=== PATIENT | male | born 1955 | race Caucasian/White ===

== ENCOUNTER 2020-12-24 22:49 | Inpatient (IN) | payer BC ==
[~2020-12-24] VITALS: Ht 177.8 cm; Wt 100.0 kg
[2020-12-24] MEDS ORDERED: OMEP40CA4 PO (23:18)
[2020-12-24] MEDS ORDERED: FLOM0.4C39 PO (23:18)
[2020-12-24] MEDS ORDERED: ATOR1TAB19 PO (23:18)
[2020-12-24] MEDS ORDERED: LISI-898 PO (23:18)
[2020-12-24] MEDS ORDERED: MELO15TA28 PO (23:18)
[2020-12-24] MEDS ORDERED: COLA100C5 PO (23:18)
[2020-12-24] MEDS ORDERED: MORPHINE 4 MG/ML 1ML VIAL/SYRINGE (J2270) IV ONE (23:35)
[2020-12-24] MEDS ORDERED: ONDANSETRON 4MG/2ML VIAL IV ONE (23:35)
[2020-12-24] MEDS ORDERED: TRANEXAMIC ACID INJection 1,000 MG in D5W 100 ML IV ONE (23:50)
[2020-12-25 00:35] LABS: BASO # 0.1 10^3/uL (0.0-0.2); BASO % 0.8 % (0.0-1.0); EOS # 0.1 10^3/uL (0.0-0.5); EOS % 0.8 % (0.0-3.0); HEMATOCRIT 40.4 % (42.0-52.0); HEMOGLOBIN 13.6 g/dl (13.5-17.5); LYMPH # 2.6 10^3/uL (1.5-5.0); MEAN CORPUSCULAR HEMOGLOBIN 31.1 pg (27.0-33.0); MEAN CORPUSCULAR HGB CONC 33.7 g/dl (32.0-36.5); MEAN CORPUSCULAR VOLUME 92.2 fl (80.0-96.0); MONO # 0.7 10^3/uL (0.0-0.8); MONO % 5.6 % (2.0-8.0); NEUTROPHILS # 9.2 10^3/uL (1.5-8.5); NEUTROPHILS % 71.9 % (36.0-66.0); PLATELET COUNT, AUTOMATED 265 10^3/uL (150-450); RED BLOOD COUNT 4.38 10^6/uL (4.30-6.10); WHITE BLOOD COUNT 12.8 10^3/uL (4.0-10.0)
[2020-12-25 00:38] LABS: RSV AMPLIFICATION NEGATIVE (NEGATIVE)
[2020-12-25 00:47] LABS: INR 0.99; PROTHROMBIN TIME 13.5 SECONDS (12.7-14.5)
[2020-12-25 00:48] LABS: PARTIAL THROMBOPLASTIN TIME 20.1 SECONDS (25.9-37.0)
[2020-12-25 00:56] LABS: BLOOD UREA NITROGEN 17 MG/DL (7-18); CALCIUM LEVEL 8.4 MG/DL (8.8-10.2); CARBON DIOXIDE LEVEL 26 MEQ/L (21-32); CHLORIDE LEVEL 104 MEQ/L (98-107); CREATININE FOR GFR 1.29 MG/DL (0.70-1.30); GLOMERULAR FILTRATION RATE > 60.0 (>49); GLUCOSE, FASTING 142 MG/DL (70-100); POTASSIUM SERUM 3.9 MEQ/L (3.5-5.1); SODIUM LEVEL 141 MEQ/L (136-145)
[2020-12-25] MEDS ORDERED: fentaNYL 100 MCG/2 ML INJECTION (J3010) IV ONE (01:50)
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
[2020-12-25] MEDS ORDERED: LIDOCAINE W/EPINEPHRINE 1% 20ML VIAL SC ONE (03:50)
[2020-12-25] MEDS ORDERED: BUPIVACAINE HCL 0.5% 30 ML VIAL SC ONE (03:50)
[2020-12-25] MEDS ORDERED: ceFAZolin SOD 1 GM in D5W MINI-BAG PLUS 50 ML IV ONE ×2 (04:50→05:05)
[2020-12-25] MEDS ORDERED: ceFAZolin SOD 2 GM in IV 1 EA IV ONE (04:50)
[2020-12-25] MEDS ORDERED: BOOSTRIX/ADACEL VACCINE (DIPHTH/PERTUSS/ACELL/TETANUS) 0.5ML SYR IM ONE (04:50)
[2020-12-25] MEDS ORDERED: ACETAMINOPHEN TAB 650MG DOSE (2X325MG) PO PRN (05:30)
[2020-12-25] MEDS ORDERED: NS 1,000 ML IV SCH (05:30)
[2020-12-25] MEDS ORDERED: ATOR1TAB21 PO (06:00)
[2020-12-25] MEDS ORDERED: LISI10TA22 PO (06:00)
[2020-12-25] MEDS ORDERED: OMEP1CAP73 PO (06:00)
[2020-12-25] MEDS ORDERED: TRAZ-186 PO (06:10)
[2020-12-25] MEDS ORDERED: FOLI1TAB11 PO (06:10)
[2020-12-25] MEDS ORDERED: LISI-898 PO (06:10)
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
[2020-12-25] MEDS ORDERED: HOME MED LIST COMPLETE! XX SCH (06:15)
[2020-12-25] MEDS: traZODone 50 MG TAB PO SCH ×2 (06:32→20:33)
[2020-12-25] MEDS: DOCUSATE SODIUM 100MG CAPSULE PO SCH ×2 (06:32→20:33)
[2020-12-25] MEDS: ATORVASTATIN 20 MG TAB PO SCH ×2 (06:33→20:33)
[2020-12-25] MEDS: TAMSULOSIN 0.4 MG CAP PO SCH ×2 (06:33→20:32)
[2020-12-25] MEDS: FOLIC ACID 1 MG TAB PO SCH ×2 (06:33→20:32)
[2020-12-25] MEDS: lisinopriL 5 MG TAB PO SCH ×2 (06:34→20:33)
[2020-12-25] MEDS: OMEPRAZOLE 20 MG CAP PO SCH ×2 (06:34→20:33)
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
[2020-12-25 08:17] LABS: BASO # 0.1 10^3/uL (0.0-0.2); BASO % 0.5 % (0.0-1.0); EOS % 0.1 % (0.0-3.0); HEMATOCRIT 38.1 % (42.0-52.0); HEMOGLOBIN 12.7 g/dl (13.5-17.5); LYMPH # 2.1 10^3/uL (1.5-5.0); MEAN CORPUSCULAR HEMOGLOBIN 30.8 pg (27.0-33.0); MEAN CORPUSCULAR HGB CONC 33.3 g/dl (32.0-36.5); MEAN CORPUSCULAR VOLUME 92.5 fl (80.0-96.0); MONO # 0.7 10^3/uL (0.0-0.8); MONO % 5.1 % (2.0-8.0); NEUTROPHILS # 11.1 10^3/uL (1.5-8.5); NEUTROPHILS % 78.7 % (36.0-66.0); PLATELET COUNT, AUTOMATED 242 10^3/uL (150-450); RED BLOOD COUNT 4.12 10^6/uL (4.30-6.10)
[2020-12-25 08:52] LABS: ALBUMIN 3.5 GM/DL (3.2-5.2); ALT/SGPT 36 U/L (12-78); BILIRUBIN,TOTAL 0.6 MG/DL (0.2-1.0); BLOOD UREA NITROGEN 19 MG/DL (7-18); CALCIUM LEVEL 8.4 MG/DL (8.8-10.2); CARBON DIOXIDE LEVEL 26 MEQ/L (21-32); CHLORIDE LEVEL 107 MEQ/L (98-107); CREATININE FOR GFR 1.12 MG/DL (0.70-1.30); GLOMERULAR FILTRATION RATE > 60.0 (>49); GLUCOSE, FASTING 120 MG/DL (70-100); MAGNESIUM LEVEL 2.1 MG/DL (1.8-2.4); POTASSIUM SERUM 4.5 MEQ/L (3.5-5.1); SODIUM LEVEL 140 MEQ/L (136-145); TOTAL PROTEIN 6.5 GM/DL (6.4-8.2)
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
[2020-12-25] MEDS: NS 1,000 ML IV SCH ×2 (13:35→20:03)
[2020-12-25] MEDS: ceFAZolin SOD 1 GM in D5W MINI-BAG PLUS 50 ML IV SCH ×2 (13:37→22:30)
[2020-12-25] MEDS ORDERED: LIDOCAINE 2% 100MG/5ML SDV (FOR ANES.) As Ordered ONE (14:59)
[2020-12-25] MEDS ORDERED: fentaNYL 250 MCG/5 ML INJECTION (J3010) As Ordered ONE (14:59)
[2020-12-25] MEDS ORDERED: propofoL 200 MG/20 ML VIAL As Ordered ONE ×3 (14:59→17:55)
[2020-12-25] MEDS ORDERED: ROCURONIUM BROMIDE 50 MG/5 ML VIAL As Ordered ONE (14:59)
[2020-12-25] MEDS ORDERED: MIDAZOLAM INJ 2MG/2ML VIAL (J2250 PER 1MG) As Ordered ONE (14:59)
[2020-12-25] MEDS ORDERED: TRANEXAMIC ACID 100 MG/ML 10ML VIAL As Ordered ONE (15:26)
[2020-12-25] MEDS ORDERED: dexameTHASONE 4 MG/ML 1ML VIAL (J1100 PER 1MG) As Ordered ONE (15:27)
[2020-12-25] MEDS ORDERED: SUGAMMADEX SODIUM 500 MG/5 ML VIAL (BRIDION) As Ordered ONE (15:41)
[2020-12-25] MEDS ORDERED: ONDANSETRON 4MG/2ML VIAL As Ordered ONE (15:41)
[2020-12-25] MEDS ORDERED: ACETAMINOPHEN 1000MG 100ML IV BTL (OFIRMEV) (J0131 PER 10MG) As Ordered ONE (15:41)
[2020-12-25] MEDS ORDERED: VANCOMYCIN 1000MG/20ML VIAL As Ordered ONE (16:52)
[2020-12-25] MEDS ORDERED: hydrALAZINE 20MG/ML 1ML VIAL (J0360 PER 20MG) As Ordered ONE (17:07)
[2020-12-25] MEDS ORDERED: fentaNYL 100 MCG/2 ML INJECTION (J3010) As Ordered ONE (17:49)
[2020-12-25] MEDS ORDERED: MORPHINE 10 MG/ML 1ML VIAL (J2270) As Ordered ONE (17:57)
[2020-12-25] MEDS ORDERED: LR 1,000 ML IV SCH (18:55)
[2020-12-25] MEDS ORDERED: oxyCODONE 5MG TAB PO PRN (18:55)
[2020-12-25] MEDS ORDERED: fentaNYL 100 MCG/2 ML INJECTION (J3010) IV PRN (18:55)
[2020-12-25] MEDS ORDERED: HYDROMORPHONE HCL 0.5 MG/ 0.5 ML SYRINGE (J1170 PER 1) IV PRN (18:55)
[2020-12-25] MEDS ORDERED: ONDANSETRON 4MG/2ML VIAL IV PRN (18:55)
[2020-12-25 19:30] VITALS: BP 126/76
[2020-12-25 20:00] VITALS: BP 129/75
[2020-12-25 20:06] VITALS: BP 129/75
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
[2020-12-25 21:00] VITALS: BP 123/68
[2020-12-25 22:00] VITALS: BP 123/70
[2020-12-25] MEDS ORDERED: MORPHINE 2 MG/ML 1ML VIAL (J2270) IV PRN (22:50)
[2020-12-25 23:00] VITALS: BP 120/69
[2020-12-25] MEDS: PERCOCET 5MG/325MG TAB PO PRN (23:26)
[2020-12-26] VITALS: BP 123/67
[2020-12-26 02:00] VITALS: BP 125/69
[2020-12-26] MEDS: ceFAZolin SOD 1 GM in D5W MINI-BAG PLUS 50 ML IV SCH ×3 (05:16→21:11)
[2020-12-26 06:00] VITALS: BP 127/67
[2020-12-26] MEDS: PERCOCET 5MG/325MG TAB PO PRN ×4 (06:17→23:23)
[2020-12-26 08:15] LABS: BASO # 0.1 10^3/uL (0.0-0.2); BASO % 0.5 % (0.0-1.0); EOS % 0.1 % (0.0-3.0); HEMATOCRIT 32.4 % (42.0-52.0); HEMOGLOBIN 10.7 g/dl (13.5-17.5); LYMPH # 2.7 10^3/uL (1.5-5.0); LYMPH % 17.8 % (24.0-44.0); MEAN CORPUSCULAR VOLUME 93.9 fl (80.0-96.0); MONO # 1.1 10^3/uL (0.0-0.8); NEUTROPHILS # 11.2 10^3/uL (1.5-8.5); NEUTROPHILS % 73.9 % (36.0-66.0); PLATELET COUNT, AUTOMATED 227 10^3/uL (150-450); RED BLOOD COUNT 3.45 10^6/uL (4.30-6.10); WHITE BLOOD COUNT 15.1 10^3/uL (4.0-10.0)
[2020-12-26 08:38] LABS: BLOOD UREA NITROGEN 14 MG/DL (7-18); CALCIUM LEVEL 8.5 MG/DL (8.8-10.2); CARBON DIOXIDE LEVEL 28 MEQ/L (21-32); CHLORIDE LEVEL 106 MEQ/L (98-107); CREATININE FOR GFR 1.09 MG/DL (0.70-1.30); GLOMERULAR FILTRATION RATE > 60.0 (>49); GLUCOSE, FASTING 115 MG/DL (70-100); MAGNESIUM LEVEL 2.2 MG/DL (1.8-2.4); POTASSIUM SERUM 3.8 MEQ/L (3.5-5.1); SODIUM LEVEL 140 MEQ/L (136-145)
[2020-12-26 10:00] VITALS: BP 120/67
[2020-12-26] MEDS ORDERED: MIRALAX *UNIT DOSE* 17GM PACKET PO PRN (10:05)
[2020-12-26] MEDS ORDERED: MOM 30ML SUSPENSION UDC PO PRN (10:05)
[2020-12-26] MEDS ORDERED: SENOKOT S TAB PO PRN (10:05)
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
[2020-12-26 10:57] LABS: HEMATOCRIT 31.4 % (42.0-52.0); HEMOGLOBIN 10.5 g/dl (13.5-17.5)
[2020-12-26] MEDS: ASPIRIN 81MG ENTERIC TABLET PO SCH ×2 (12:10→21:00)
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
[2020-12-26 14:00] VITALS: BP 132/64
[2020-12-26 18:40] LABS: HEMATOCRIT 33.1 % (42.0-52.0); HEMOGLOBIN 10.7 g/dl (13.5-17.5)
[2020-12-26] MEDS: TAMSULOSIN 0.4 MG CAP PO SCH (21:11)
[2020-12-26] MEDS: OMEPRAZOLE 20 MG CAP PO SCH (21:11)
[2020-12-26] MEDS: FOLIC ACID 1 MG TAB PO SCH (21:14)
[2020-12-26] MEDS: lisinopriL 5 MG TAB PO SCH (21:14)
[2020-12-26] MEDS: ATORVASTATIN 20 MG TAB PO SCH (21:14)
[2020-12-26] MEDS: traZODone 50 MG TAB PO SCH (21:14)
[2020-12-26 22:00] VITALS: BP 137/66
[2020-12-27 00:12] LABS: HEMATOCRIT 31.2 % (42.0-52.0); HEMOGLOBIN 10.3 g/dl (13.5-17.5)
[2020-12-27] MEDS: ceFAZolin SOD 1 GM in D5W MINI-BAG PLUS 50 ML IV SCH ×3 (05:15→21:32)
[2020-12-27 06:00] VITALS: BP 164/77
[2020-12-27 06:18] LABS: BASO # 0.1 10^3/uL (0.0-0.2); BASO % 0.8 % (0.0-1.0); EOS # 0.1 10^3/uL (0.0-0.5); EOS % 1.2 % (0.0-3.0); HEMATOCRIT 30.8 % (42.0-52.0); HEMOGLOBIN 10.1 g/dl (13.5-17.5); LYMPH % 28.8 % (24.0-44.0); MEAN CORPUSCULAR HEMOGLOBIN 30.9 pg (27.0-33.0); MEAN CORPUSCULAR HGB CONC 32.8 g/dl (32.0-36.5); MEAN CORPUSCULAR VOLUME 94.2 fl (80.0-96.0); MONO # 0.8 10^3/uL (0.0-0.8); NEUTROPHILS # 6.3 10^3/uL (1.5-8.5); NEUTROPHILS % 60.8 % (36.0-66.0); PLATELET COUNT, AUTOMATED 204 10^3/uL (150-450); RED BLOOD COUNT 3.27 10^6/uL (4.30-6.10); WHITE BLOOD COUNT 10.3 10^3/uL (4.0-10.0)
[2020-12-27] MEDS: PERCOCET 5MG/325MG TAB PO PRN ×4 (06:22→23:01)
[2020-12-27 06:34] LABS: BLOOD UREA NITROGEN 14 MG/DL (7-18); CALCIUM LEVEL 8.2 MG/DL (8.8-10.2); CARBON DIOXIDE LEVEL 30 MEQ/L (21-32); CHLORIDE LEVEL 109 MEQ/L (98-107); CREATININE FOR GFR 1.11 MG/DL (0.70-1.30); GLOMERULAR FILTRATION RATE > 60.0 (>49); GLUCOSE, FASTING 96 MG/DL (70-100); MAGNESIUM LEVEL 2.2 MG/DL (1.8-2.4); POTASSIUM SERUM 3.8 MEQ/L (3.5-5.1); SODIUM LEVEL 143 MEQ/L (136-145)
[2020-12-27] MEDS: ASPIRIN 81MG ENTERIC TABLET PO SCH ×2 (08:56→20:28)
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
[2020-12-27 14:00] VITALS: BP 131/63
[2020-12-27] MEDS: FOLIC ACID 1 MG TAB PO SCH (20:27)
[2020-12-27] MEDS: traZODone 50 MG TAB PO SCH (20:27)
[2020-12-27] MEDS: ATORVASTATIN 20 MG TAB PO SCH (20:28)
[2020-12-27] MEDS: TAMSULOSIN 0.4 MG CAP PO SCH (20:28)
[2020-12-27] MEDS: OMEPRAZOLE 20 MG CAP PO SCH (20:28)
[2020-12-27] MEDS: lisinopriL 5 MG TAB PO SCH (20:28)
[2020-12-28] MEDS: ceFAZolin SOD 1 GM in D5W MINI-BAG PLUS 50 ML IV SCH ×3 (05:15→23:02)
[2020-12-28 06:20] LABS: BASO # 0.1 10^3/uL (0.0-0.2); BASO % 1.1 % (0.0-1.0); EOS # 0.3 10^3/uL (0.0-0.5); EOS % 2.8 % (0.0-3.0); HEMATOCRIT 33.1 % (42.0-52.0); HEMOGLOBIN 10.9 g/dl (13.5-17.5); LYMPH # 2.8 10^3/uL (1.5-5.0); LYMPH % 30.2 % (24.0-44.0); MEAN CORPUSCULAR HEMOGLOBIN 30.7 pg (27.0-33.0); MEAN CORPUSCULAR HGB CONC 32.9 g/dl (32.0-36.5); MEAN CORPUSCULAR VOLUME 93.2 fl (80.0-96.0); MONO # 0.8 10^3/uL (0.0-0.8); MONO % 8.6 % (2.0-8.0); NEUTROPHILS # 5.3 10^3/uL (1.5-8.5); NEUTROPHILS % 56.8 % (36.0-66.0); PLATELET COUNT, AUTOMATED 220 10^3/uL (150-450); RED BLOOD COUNT 3.55 10^6/uL (4.30-6.10); WHITE BLOOD COUNT 9.3 10^3/uL (4.0-10.0)
[2020-12-28 06:36] LABS: BLOOD UREA NITROGEN 15 MG/DL (7-18); CALCIUM LEVEL 8.4 MG/DL (8.8-10.2); CARBON DIOXIDE LEVEL 29 MEQ/L (21-32); CHLORIDE LEVEL 106 MEQ/L (98-107); CREATININE FOR GFR 1.07 MG/DL (0.70-1.30); GLOMERULAR FILTRATION RATE > 60.0 (>49); GLUCOSE, FASTING 92 MG/DL (70-100); MAGNESIUM LEVEL 2.4 MG/DL (1.8-2.4); POTASSIUM SERUM 3.8 MEQ/L (3.5-5.1); SODIUM LEVEL 143 MEQ/L (136-145)
[2020-12-28] MEDS: PERCOCET 5MG/325MG TAB PO PRN ×4 (06:53→21:29)
[2020-12-28 06:58] VITALS: BP 146/69
[2020-12-28] MEDS: ASPIRIN 81MG ENTERIC TABLET PO SCH ×2 (08:44→20:28)
[2020-12-28 14:00] VITALS: BP 146/70
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
[2020-12-28] MEDS: FOLIC ACID 1 MG TAB PO SCH (20:28)
[2020-12-28 20:29] VITALS: BP 140/78
[2020-12-28] MEDS: ATORVASTATIN 20 MG TAB PO SCH (20:29)
[2020-12-28] MEDS: TAMSULOSIN 0.4 MG CAP PO SCH (20:29)
[2020-12-28] MEDS: lisinopriL 5 MG TAB PO SCH (20:29)
[2020-12-28] MEDS: traZODone 50 MG TAB PO SCH (20:29)
[2020-12-28] MEDS: OMEPRAZOLE 20 MG CAP PO SCH (20:29)
[2020-12-28 22:00] VITALS: BP 140/73
[2020-12-29] MEDS: PERCOCET 5MG/325MG TAB PO PRN ×3 (02:47→09:11)
[2020-12-29] MEDS: ceFAZolin SOD 1 GM in D5W MINI-BAG PLUS 50 ML IV SCH (05:18)
[2020-12-29 06:33] LABS: BASO # 0.1 10^3/uL (0.0-0.2); EOS # 0.4 10^3/uL (0.0-0.5); EOS % 4.5 % (0.0-3.0); LYMPH # 2.4 10^3/uL (1.5-5.0); LYMPH % 26.8 % (24.0-44.0); MEAN CORPUSCULAR HEMOGLOBIN 31.3 pg (27.0-33.0); MEAN CORPUSCULAR HGB CONC 33.3 g/dl (32.0-36.5); MEAN CORPUSCULAR VOLUME 93.8 fl (80.0-96.0); MONO # 0.7 10^3/uL (0.0-0.8); NEUTROPHILS # 5.4 10^3/uL (1.5-8.5); NEUTROPHILS % 59.1 % (36.0-66.0); PLATELET COUNT, AUTOMATED 248 10^3/uL (150-450); RED BLOOD COUNT 3.52 10^6/uL (4.30-6.10); WHITE BLOOD COUNT 9.1 10^3/uL (4.0-10.0)
[2020-12-29 06:42] LABS: BLOOD UREA NITROGEN 20 MG/DL (7-18); CALCIUM LEVEL 8.5 MG/DL (8.8-10.2); CARBON DIOXIDE LEVEL 29 MEQ/L (21-32); CHLORIDE LEVEL 106 MEQ/L (98-107); CREATININE FOR GFR 1.03 MG/DL (0.70-1.30); GLOMERULAR FILTRATION RATE > 60.0 (>49); GLUCOSE, FASTING 101 MG/DL (70-100); MAGNESIUM LEVEL 2.2 MG/DL (1.8-2.4); SODIUM LEVEL 142 MEQ/L (136-145)
[2020-12-29 06:52] VITALS: BP 139/76
[2020-12-29] MEDS ORDERED: CEPH250T PO (08:45)
[2020-12-29] MEDS ORDERED: PERCOCET PO (08:45)
[2020-12-29] MEDS ORDERED: SENN-52 PO (08:45)
[2020-12-29] MEDS ORDERED: ASPI-551 PO (08:45)
[2020-12-29] MEDS: ASPIRIN 81MG ENTERIC TABLET PO SCH (09:06)
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
== END 2020-12-29 10:56 | disposition home or self-care (01) | DRG 317 ==
LOC: M ED 22:49 → M ED INP 12-25 05:28 → ENRESERV 12-25 06:13 → M MS5PR 12-25 07:54
PROVIDERS: ADMIT Family Medicine; ATTEND Internal Medicine
PROC: 0LQV0ZZ Repair Right Foot Tendon, Open Approach (ICD-10-PCS; principal; 2020-12-25 15:30)
PROC: 0YBM0ZZ Excision of Right Foot, Open Approach (ICD-10-PCS; 2020-12-25 15:30)
DX: S96.121A Laceration of muscle and tendon of long extensor muscle of toe at ankle and foot level, right foot, initial encounter (principal); D62 Acute posthemorrhagic anemia; I10 Essential (primary) hypertension; E78.5 Hyperlipidemia, unspecified; Z86.73 Personal history of transient ischemic attack (TIA), and cerebral infarction without residual deficits; Z79.82 Long term (current) use of aspirin; Z79.899 Other long term (current) drug therapy; Z91.030 Bee allergy status; X17.XXXA Contact with hot engines, machinery and tools, initial encounter; Y92.009 Unspecified place in unspecified non-institutional (private) residence as the place of occurrence of the external cause; E66.9 Obesity, unspecified; Z68.31 Body mass index [BMI] 31.0-31.9, adult; N40.0 Benign prostatic hyperplasia without lower urinary tract symptoms; K21.9 Gastro-esophageal reflux disease without esophagitis

== ENCOUNTER → 2022-10-16 | Outpatient (CLI) | payer BC ==
[~2022-10-16] MED LIST: ASPI-551 PO; ATOR1TAB19 PO; ATOR1TAB21 PO; CEPH250T PO; COLA100C5 PO; FLOM0.4C39 PO; FOLI1TAB11 PO; LISI10TA22 PO; LISI5TAB11 PO; MELO15TA28 PO; OMEP1CAP73 PO; OMEP40CA4 PO; PERCOCET PO; SENN-52 PO; TRAZ-186 PO
== END ==
LOC: M SLEEP 20:00
PROVIDERS: ATTEND Nurse Practitioner Adult Health
DX: G47.33 Obstructive sleep apnea (adult) (pediatric) (principal)